=== PATIENT | male | born 1980 | race Caucasian/White ===

== ENCOUNTER 2023-08-22 17:02 | Emergency (ER) | payer OTHER ==
[~2023-08-22] VITALS: Ht 180.3 cm; Wt 137.9 kg
[2023-08-22 17:09] VITALS: BP 150/103; PULSE 113; RESP 18; TEMP 97.1; O2SAT 97
[2023-08-22] MEDS ORDERED: KETOROLAC TROMETH 60MG/2ML VIAL IM ONE (20:45)
== END 2023-08-22 21:02 | disposition home or self-care (01) ==
LOC: ER 17:02
DX: M79.672 Pain in left foot (principal); Z88.0 Allergy status to penicillin; W18.39XA Other fall on same level, initial encounter; Y93.89 Activity, other specified; Y92.89 Other specified places as the place of occurrence of the external cause; Y99.8 Other external cause status
CPT/HCPCS: 73650; 96372; 99283; J1885